=== PATIENT | female | born 1985 | race Caucasian/White ===

== ENCOUNTER 2018-10-29 12:29 | Inpatient (IN) | payer OTHER ==
[~2018-10-29] VITALS: Ht 149.9 cm; Wt 59.0 kg
[~2018-10-29 12:29] MED LIST: KETO10TA2 PO
[2018-10-30] MEDS ORDERED: PROZAC20 MG PO (10:53)
[2018-10-30] MEDS ORDERED: SEROQUEL50 MG PO (10:54)
== END 2018-11-06 08:55 | disposition home or self-care (01) | DRG 661 ==
LOC: SURH 11-04 08:30 → O/R 11-04 11:50 → SURH 11-04 20:36
PROVIDERS: ADMIT Urology
PROC: 0T778DZ Dilation of Left Ureter with Intraluminal Device, Via Natural or Artificial Opening Endoscopic (ICD-10-PCS; 2018-11-04)
PROC: BT1BYZZ Fluoroscopy of Bladder and Urethra using Other Contrast (ICD-10-PCS; 2018-11-04)
PROC: 0TC18ZZ Extirpation of Matter from Left Kidney, Via Natural or Artificial Opening Endoscopic (ICD-10-PCS; principal; 2018-11-04 11:30)
DX: N20.0 Calculus of kidney (principal)

== ENCOUNTER 2018-10-29 13:03 | Outpatient (CLI) | payer OTHER ==
[2018-10-30] MEDS ORDERED: PROZAC20 MG PO (10:53)
[2018-10-30] MEDS ORDERED: SEROQUEL50 MG PO (10:54)
== END 2018-10-29 15:00 | disposition home or self-care (01) ==
LOC: LAB 13:03
DX: N20.0 Calculus of kidney (principal); R82.79 Other abnormal findings on microbiological examination of urine

== ENCOUNTER 2018-11-12 11:18 | Outpatient (CLI) | payer OTHER ==
[~2018-11-12 11:18] MED LIST changes: +PROZAC20 MG PO; +SEROQUEL50 MG PO
== END 2018-11-12 11:23 | disposition home or self-care (01) ==
LOC: LAB 11:18
DX: N20.0 Calculus of kidney (principal); D62 Acute posthemorrhagic anemia

== ENCOUNTER 2018-11-27 14:11 | Emergency (ER) | payer OTHER ==
[~2018-11-27] VITALS: Ht 149.9 cm; Wt 58.1 kg
== END 2018-11-27 22:13 | disposition home or self-care (01) ==
LOC: ER 14:11
DX: R10.84 Generalized abdominal pain (principal)

== ENCOUNTER 2018-11-30 12:11 | Outpatient (CLI) | payer OTHER | END 2018-11-30 12:30 | disposition home or self-care (01) | LOC: RAD 12:11 | DX: N92.0 Excessive and frequent menstruation with regular cycle (principal) ==